=== PATIENT | male | born 1945 | race Caucasian/White ===

== ENCOUNTER → 2025-01-04 | Outpatient (REF) | payer MEDICARE | LOC: RAD 15:52 | PROVIDERS: ATTEND Internal Medicine Pulmonary Disease | DX: R06.02 Shortness of breath (principal) | CPT/HCPCS: 71046 ==

== ENCOUNTER 2025-01-13 12:54 | Outpatient (RCR) | payer MEDICARE | END 2025-01-17 | LOC: RESP 12:54 | PROVIDERS: ATTEND Internal Medicine Pulmonary Disease | DX: J44.9 Chronic obstructive pulmonary disease, unspecified (principal) | CPT/HCPCS: 94626 ×4; 94799; G0238 ×4 ==

== ENCOUNTER 2025-02-14 12:53 | Outpatient (RCR) | payer MEDICARE | END 2025-02-16 | LOC: RESP 12:53 | PROVIDERS: ATTEND Family Medicine | DX: J44.9 Chronic obstructive pulmonary disease, unspecified (principal); R05.3 Chronic cough | CPT/HCPCS: 94626 ×7; G0238 ×7 ==